=== PATIENT | male | born 1990 | race African-American/Black ===

== ENCOUNTER 2016-11-03 22:22 | Emergency (ER) | payer MEDICARE | END 2016-11-04 04:18 | disposition short-term general hospital (02) | LOC: ER 22:22 | DX: K62.5 Hemorrhage of anus and rectum (principal); D50.9 Iron deficiency anemia, unspecified; J45.909 Unspecified asthma, uncomplicated; F17.210 Nicotine dependence, cigarettes, uncomplicated | CPT/HCPCS: 36415; 36430; 96361; 96374; P9021 ==